=== PATIENT | male | born 1980 | race African-American/Black ===

== ENCOUNTER 2019-09-05 19:12 | Emergency (ER) | payer MEDICAID ==
[~2019-09-05] VITALS: Ht 188 cm; Wt 91.0 kg
[2019-09-05 19:14] VITALS: BP 132/70
[2019-09-05] MEDS ORDERED: ONDANSETRON 2MG/ML, 2ML IVPush ONE (20:00)
[2019-09-05] MEDS ORDERED: morphine SULFATE 10 MG/ML, 1ML IVPush ONE (20:00)
[2019-09-05] MEDS ORDERED: KETOROLAC 30 MG/1 ML IVPush ONE (20:00)
[2019-09-05] MEDS ORDERED: ONDANSETRON 2MG/ML, 2ML ONE (20:01)
[2019-09-05] MEDS ORDERED: MORPHINE SULFATE 4 MG/ML, 1ML ONE (20:01)
[2019-09-05] MEDS ORDERED: KETOROLAC 30 MG/1 ML ONE (20:01)
--- NOTE | 2019-09-05 20:20 | NUR ---
Xr complete and tech at bedside w/ knee immobilizer.
== END 2019-09-05 21:21 | disposition home or self-care (01) ==
LOC: ED 21:00
DX: S83.411A Sprain of medial collateral ligament of right knee, initial encounter (principal); X50.1XXA Overexertion from prolonged static or awkward postures, initial encounter; Y93.67 Activity, basketball; Y92.098 Other place in other non-institutional residence as the place of occurrence of the external cause; Y99.8 Other external cause status
CPT/HCPCS: 29505; 73564; 96374; 96375; 99284; J1885; J2270; J2405